=== PATIENT | female | born 1955 | race Caucasian/White ===

== ENCOUNTER → 2016-07-05 | Outpatient (CLI) | payer OTHER | LOC: RAD 02:32 | DX: R92.8 Other abnormal and inconclusive findings on diagnostic imaging of breast (principal) ==

== ENCOUNTER → 2017-08-23 | Outpatient (CLI) | payer OTHER | LOC: RAD 01:13 | DX: Z12.31 Encounter for screening mammogram for malignant neoplasm of breast (principal) ==

== ENCOUNTER 2018-05-09 21:23 | Emergency (ER) | payer OTHER ==
[~2018-05-09] VITALS: Ht 167.6 cm; Wt 74.8 kg
[2018-05-09] MEDS ORDERED: FLEXERIL PO (21:43)
[2018-05-09 21:55] VITALS: BP 169/85
== END 2018-05-09 22:46 | disposition home or self-care (01) ==
LOC: ER 21:23
DX: M54.2 Cervicalgia (principal); I10 Essential (primary) hypertension; E11.9 Type 2 diabetes mellitus without complications; Z98.890 Other specified postprocedural states

== ENCOUNTER → 2018-06-27 | Outpatient (CLI) | payer OTHER ==
[~2018-06-27] MED LIST: FLEXERIL PO
== END ==
LOC: ULTRA 10:11
DX: M79.605 Pain in left leg (principal); M79.89 Other specified soft tissue disorders

== ENCOUNTER → 2018-10-16 | Outpatient (CLI) | payer OTHER | LOC: RAD 09-05 03:49 | DX: Z12.31 Encounter for screening mammogram for malignant neoplasm of breast (principal) ==

== ENCOUNTER → 2019-12-16 | Outpatient (CLI) | payer OTHER | LOC: RAD 12:57 | PROVIDERS: ATTEND Family Medicine | DX: Z12.31 Encounter for screening mammogram for malignant neoplasm of breast (principal) ==

== ENCOUNTER → 2019-12-29 | Outpatient (CLI) | payer OTHER | LOC: ULTRA 09:09 | PROVIDERS: ATTEND Family Medicine | DX: N63.13 Unspecified lump in the right breast, lower outer quadrant (principal); N63.11 Unspecified lump in the right breast, upper outer quadrant; N60.41 Mammary duct ectasia of right breast ==

== ENCOUNTER → 2020-05-10 | Outpatient (CLI) | payer OTHER | LOC: LAB 12:22 | PROVIDERS: ATTEND Family Medicine | DX: U07.1 COVID-19 (principal) ==

== ENCOUNTER → 2020-05-10 | Outpatient (CLI) | payer OTHER ==
[2020-05-10 13:01] LABS: URINE BILIRUBIN NEGATIVE (Negative); URINE BLOOD NEGATIVE (Negative); URINE CLARITY CLEAR; URINE COLOR YELLOW; URINE GLUCOSE-RANDOM* NEGATIVE (Negative); URINE KETONES NEGATIVE (Negative); URINE LEUKOCYTES-REFLEX NEGATIVE (Negative); URINE NITRITE-REFLEX NEGATIVE (Negative); URINE PROTEIN (DIPSTICK) NEGATIVE (Negative); URINE UROBILINOGEN 0.2 E.U./dl (0.2-1.0)
[2020-05-10 13:04] LABS: ABSOLUTE NEUTROPHILS 2.7 thou/uL (1.4-8.2); BASOPHILS 0.7 % (0.0-2.0); EOSINOPHILS 2.1 % (0.0-3.0); HEMATOCRIT 37.2 % (37.0-47.0); HEMOGLOBIN 11.9 gm/dL (12.0-15.0); LYMPHOCYTES 35.6 % (24.0-44.0); MCH 24.8 pg (26.0-34.0); MCHC 31.9 g/dL (28.0-37.0); MCV 77.8 fL (80.0-100.0); MONOCYTES 10.6 % (1.0-8.0); PLATELET COUNT 215 thou/uL (150-400); RBC 4.79 mil/uL (4.20-5.00); RDW 14.5 % (10.5-14.5); WBC 5.3 thou/uL (4.0-11.0)
[2020-05-10 13:25] LABS: ALBUMIN 4.1 g/dL (3.4-5.0); ANION GAP 11 mmol/L (7-16); BUN 24 mg/dL (7-18); CALCIUM 9.3 mg/dL (8.5-10.1); CHLORIDE 106 mmol/L (98-107); CHOLESTEROL 169 mg/dL (<200); CO2 26 mmol/L (21-32); CREATININE 1.5 mg/dL (0.6-1.0); GLUCOSE 89 mg/dL (74-106); HDL CHOLESTEROL 52 mg/dL (>40); LDL CHOLESTEROL 101 mg/dL (<100); POTASSIUM 3.8 mmol/L (3.5-5.1); SGOT 22 U/L (15-37); SGPT 21 U/L (30-65); SODIUM 143 mmol/L (136-145); TC:HDL 3.3 Ratio (Not establshd); TOTAL BILIRUBIN 0.2 mg/dL (0.2-1.0); TOTAL PROTEIN 7.9 g/dL (6.4-8.2); TRIGLYCERIDE 80 mg/dL (<150); VLDL 16 mg/dL (<40)
[2020-05-11 07:08] LABS: GLYCOHEMOGLOBIN (HGB A1C) 6.1 % (4.8-5.6)
== END ==
LOC: LAB 11:16
PROVIDERS: ATTEND Family Medicine
DX: Z00.00 Encounter for general adult medical examination without abnormal findings (principal); I10 Essential (primary) hypertension; E11.9 Type 2 diabetes mellitus without complications

== ENCOUNTER → 2020-08-01 | Outpatient (CLI) | payer OTHER ==
[2020-08-01 09:54] LABS: ALBUMIN 3.8 g/dL (3.4-5.0); ANION GAP 9 mmol/L (7-16); BUN 22 mg/dL (7-18); CALCIUM 9.1 mg/dL (8.5-10.1); CHLORIDE 107 mmol/L (98-107); CO2 27 mmol/L (21-32); CREATININE 1.1 mg/dL (0.6-1.0); GLUCOSE 134 mg/dL (74-106); POTASSIUM 3.6 mmol/L (3.5-5.1); SGOT 20 U/L (15-37); SGPT 24 U/L (14-59); SODIUM 143 mmol/L (136-145); TOTAL BILIRUBIN 0.2 mg/dL (0.2-1.0); TOTAL PROTEIN 7.2 g/dL (6.4-8.2); TROPONIN-I <0.06 ng/mL (<0.06)
== END ==
LOC: LAB 09:03
PROVIDERS: ATTEND Family Medicine
DX: R07.89 Other chest pain (principal)

== ENCOUNTER → 2020-12-28 | Outpatient (CLI) | payer OTHER | LOC: RAD 14:07 | PROVIDERS: ATTEND Family Medicine | DX: Z12.31 Encounter for screening mammogram for malignant neoplasm of breast (principal) ==

== ENCOUNTER → 2021-05-17 | Outpatient (CLI) | payer OTHER ==
[2021-05-17 09:44] LABS: ABSOLUTE NEUTROPHILS 2.2 thou/uL (1.4-8.2); BASOPHILS 1.1 % (0.0-2.0); EOSINOPHILS 2.1 % (0.0-3.0); HEMATOCRIT 35.2 % (37.0-47.0); HEMOGLOBIN 11.4 gm/dL (12.0-15.0); MCH 24.9 pg (26.0-34.0); MCHC 32.5 g/dL (28.0-37.0); MCV 76.6 fL (80.0-100.0); MONOCYTES 9.3 % (1.0-8.0); PLATELET COUNT 209 thou/uL (150-400); POLYS 47.5 % (36.0-66.0); RBC 4.59 mil/uL (4.20-5.00); RDW 14.6 % (10.5-14.5); URINE BILIRUBIN NEGATIVE (Negative); URINE BLOOD NEGATIVE (Negative); URINE CLARITY CLEAR; URINE COLOR YELLOW; URINE GLUCOSE-RANDOM* NEGATIVE (Negative); URINE KETONES NEGATIVE (Negative); URINE NITRITE-REFLEX NEGATIVE (Negative); URINE PROTEIN (DIPSTICK) NEGATIVE (Negative); URINE SPECIFIC GRAVITY 1.015 (1.005-1.035); URINE UROBILINOGEN 0.2 E.U./dl (0.2-1.0); WBC 4.5 thou/uL (4.0-11.0)
[2021-05-17 09:50] LABS: URINE LEUKOCYTES-REFLEX 1+ (Negative)
[2021-05-17 10:04] LABS: BACTERIA-REFLEX None Seen /HPF (None Seen); CASTS None Seen /LPF (None Seen); CRYSTALS None Seen /LPF (None Seen); SQUAMOUS 0-3 Few /LPF (0-3); URINE RBC None Seen /HPF (NONE SEEN); URINE WBC-REFLEX 0-5 Rare /HPF (0-5)
[2021-05-17 10:11] LABS: ALBUMIN 3.7 g/dL (3.4-5.0); ANION GAP 7 mmol/L (7-16); BUN 29 mg/dL (7-18); CALCIUM 8.7 mg/dL (8.5-10.1); CHLORIDE 104 mmol/L (98-107); CHOLESTEROL 162 mg/dL (<200); CO2 28 mmol/L (21-32); CREATININE 1.3 mg/dL (0.6-1.0); GLUCOSE 120 mg/dL (74-106); HDL CHOLESTEROL 49 mg/dL (>40); LDL CHOLESTEROL 98 mg/dL (<100); POTASSIUM 3.8 mmol/L (3.5-5.1); SGOT 17 U/L (15-37); SGPT 19 U/L (30-65); SODIUM 139 mmol/L (136-145); TC:HDL 3.3 Ratio (Not establshd); TOTAL BILIRUBIN 0.3 mg/dL (0.2-1.0); TOTAL PROTEIN 7.4 g/dL (6.4-8.2); TRIGLYCERIDE 79 mg/dL (<150); VLDL 16 mg/dL (<40)
[2021-05-18 04:06] LABS: GLYCOHEMOGLOBIN (HGB A1C) 6.3 % (4.8-5.6)
== END ==
LOC: LAB 08:47
PROVIDERS: ATTEND Family Medicine
DX: Z00.00 Encounter for general adult medical examination without abnormal findings (principal); E11.9 Type 2 diabetes mellitus without complications; I10 Essential (primary) hypertension; G43.909 Migraine, unspecified, not intractable, without status migrainosus